=== PATIENT | male | born 1965 | race Caucasian/White ===

== ENCOUNTER 2016-07-04 19:21 | Emergency (ER) | payer BC, MEDICAID ==
--- NOTE | 2016-07-04 19:29 | ED Physician Chart ---
Chief Complaint/HPI - Patient Information Date Seen:: 07/04/16 Time Seen:: 19:29 Chief Complaint:: medication refill History of Present Illness:: 51-year-old male, insulin-dependent diabetic, complains of acute, moderate, need for insulin medication. Has associated frustrated feelings because he is unable to find somebody that will give him a free insulin. He is requesting dispensary of insulin. Has a prescription already but is unable to fill it because says he does not want to spend $200 on the medication. Historian:: Patient Review:: Nurse's Note Reviewed Review of Systems - Review of Systems Other: Complete system review otherwise unremarkable except as noted in HPI. Past Medical History - Past Medical History Past Medical History: HTN, DM Family History: None Social History: Non Smoker, No Alcohol, No Drug Use, Single Surgical History: None Psychiatricy History: None Medication: Reviewed Physical Exam - Physical Examination Other:: INITIAL VITAL SIGNS: Reviewed by me GENERAL: Alert and interactive. No acute distress HEAD: Head is normocephalic and atraumatic EYES: EOMI. . No scleral icterus. No conjunctival injection ENT: Moist mucous membranes. NECK: Supple. No masses. Full range of motion RESPIRATORY: No tachypnea. Clear breath sounds bilaterally. No wheezing, rales, or rhonchi CV: Regular rate and rhythm. No murmurs, rubs, or gallops ABDOMEN: Soft, non-distended, non-tender. No guarding. No rebound. No masses. EXTREMITIES: No deformity. No cyanosis. No edema. SKIN: Warm and dry. No obvious rashes. NEUROLOGIC: Alert and oriented. Face is symmetric. Speech is normal. Moves all extremities equally. Motor and sensory distally intact. ED Septic Shock - . Is Septic Shock (SBP<90, OR Lactate>4 mmol\L) present?: No Reassessment (Disposition) - Reassessment Reassessment:: Patient is here and is requesting that we dispense insulin/Lantus to him. He does not want to pay for it before his Medi-[facility] prescription kicks in. He already has a prescription for but apparently does not have the insurance to cover the cost. Accu-Chek was done here indicating blood sugar approximately 300. Patient advised to continue his oral metformin and follow up with primary care. I advised him that we are unable to dispense medicine at this facility. - Diagnosis Diagnosis:: Diabetes mellitus type 2 Hypertension Hypercholesterolemia Medication refill - Aftercare/Follow up Instructions Aftercare/Follow-Up Instructions:: Counseled pt regarding lab results/diagnosis & need follow up, Refer to Discharge Instructions - Patient Disposition Discharge/Transfer:: Home Time:: 20:00 Condition at Disposition:: Improved ED Discharge Plan - Patient Disposition Admit/Discharge/Transfer: PT DISCHARGED HOME Condition at Disposition: Improved Instructions: Type 2 Diabetes Mellitus, Adult, Insulin Treatment in Diabetes
== END 2016-07-04 20:20 | disposition home or self-care (01) ==
LOC: ER 19:21
DX: E11.8 Type 2 diabetes mellitus with unspecified complications (principal); I10 Essential (primary) hypertension; E78.00 Pure hypercholesterolemia, unspecified; Z79.4 Long term (current) use of insulin

== ENCOUNTER 2018-09-03 21:46 | Emergency (ER) | payer SELFPAY ==
--- NOTE | 2018-09-03 22:09 | ED Physician Chart ---
ED Chief Complaint/HPI - Patient Information Date Seen:: 09/03/18 Time Seen:: 22:04 Chief Complaint:: right elbow pain History of Present Illness:: this is a 53 yo diabetic,hypertensive, elevated lipids male with a history of gout with right elbow pain for a month. he is now concerned with increase pain or the last few days. Allergies:: Allergies Allergy/AdvReac Type Severity Reaction Status Date / Time No Known Allergies Allergy Verified 07/04/16 20:04 Vitals:: Vital Signs - 8 hr 09/03/18 21:50 Temp 98.2 F HR 82 RR 18 BP 147/90 O2 Sat % 96 Historian:: Patient Review:: Nurse's Note Reviewed, Old Chart Reviewed ED Review of Systems - Review of Systems General/Constitutional: No fever, No chills, No weight loss, No weakness, No diaphoresis, No edema, No loss of appetite Skin: No skin lesions, No rash, No bruising Head: No headache, No light-headedness Eyes: No loss of vision, No pain, No diplopia ENT: No earache, No nasal drainage, No sore throat, No tinnitus Neck: No neck pain, No swelling, No thyromegaly, No stiffness, No mass noted Cardio Vascular: No chest pain, No palpitations, No PND, No orthopnea, No edema Pulmonary: No SOB, No cough, No sputum, No wheezing GI: No nausea, No vomiting, No diarrhea, No pain, No melena, No hematochezia, No constipation, No hematemesis G/U: No dysuria, No frequency, No hematuria Musculoskeletal: Bone or joint pain (right elbow pain), No back pain, No muscle pain Endocrine: No polyuria, No polydipsia Psychiatric: No prior psych history, No depression, No anxiety, No suicidal ideation Hematopoietic: No bruising, No lymphadenopathy Allergic/Immuno: No urticaria, No angioedema Neurological: No syncope, No focal symptoms, No weakness, No paresthesia, No headache, No seizure, No dizziness, No confusion, No vertigo ED Past Medical History - Past Medical History Obtainable: Yes Past Medical History: HTN, DM, Dyslipidemia, Other (gout) Family History: None Social History: Non Smoker, No Alcohol, Illicit Drug Use, Single Surgical History: None Psychiatricy History: None Family Medical History - Family Member Mother History Unknown: Yes Brother Hx Family Diabetes: Yes ED Physical Exam - Physical Examination General/Constitutional: Awake, Well-developed, well-nourished, Alert, No distress, GCS 15, Non-toxic appearing, Ambulatory Head: Atraumatic Eyes: Lids, conjuctiva normal, PERRL, EOMI Skin: Nl inspection, No rash, No skin lesions, No ecchymosis, Well hydrated, No lymphadenopathy ENMT: External ears, nose nl, Nasal exam nl, Lips, teeth, gums nl Neck: Nontender, Full ROM w/o pain, No JVD, No nuchal rigidity, No bruit, No mass, No stridor Respiratory: Nl effort/Exclusion, Clear to Auscultation, No Wheeze/Rhonchi/Rales Cardio Vascular: RRR, No murmur, gallop, rubs, NL S1 S2 GI: No tenderness/rebounding/guarding, No organomegaly, No hernia, Normal BS's, Nondistended, No mass/bruits, No McBurney tenderness : No CVA tenderness Extremities: No tenderness or effusion (the right elbow is red, warm, tender and swollen with painful rom.), Full ROM, normal strength in all extremities, No edema, Normal digits & nails Neuro/Psych: Alert/oriented, DTR's symmetric, Normal sensory exam, Normal motor strength, Judgement/insight normal, Mood normal, Normal gait, No focal deficits Misc: Normal back, No paraspinal tenderness ED Labs/Radiology/EKG Results - Lab Results Results: Laboratory Results - last 24 hr 09/03/18 09/03/18 09/03/18 22:10 22:10 22:10 WBC 10.2 RBC 5.78 H Hgb 16.4 Hct 49.3 MCV 85.3 MCH 28.3 MCHC Differential 33.2 RDW 12.8 Plt Count 173 MPV 8.3 Neutrophils % 70.3 Lymphocytes % 18.6 L Monocytes % 8.6 Eosinophils % 2.3 Basophils % 0.2 Sodium 132 L Potassium 4.3 Chloride 100 Carbon Dioxide 22.9 Anion Gap 13.4 BUN 22 Creatinine 1.0 Est GFR ( Amer) > 60.0 Est GFR (Non-Af Amer) > 60.0 BUN/Creatinine Ratio 22.0 Glucose 386 H Uric Acid 5.1 Calcium 8.9 Total Bilirubin 0.5 AST 9 L ALT 10 Alkaline Phosphatase 64 Total Protein 6.8 Albumin 3.7 L Globulin 3.1 Albumin/Globulin Ratio 1.2 ED Assessment - Assessment General Assessment: arthritis of the right elbow ED Septic Shock - . Is Septic Shock (SBP<90, OR Lactate>4 mmol\L) present?: No - <6hrs of presentation: Vital Signs: Vital Signs - 8 hr 09/03/18 21:50 Temp 98.2 F HR 82 RR 18 BP 147/90 O2 Sat % 96 ED Reassessment (Disposition) - Reassessment Reassessment Condition:: Improved - Diagnosis Diagnosis:: right elbow arthritis diabetes mellitus uncontrolled - Aftercare/Follow up Instructions Aftercare/Follow-Up Instructions:: Counseled pt regarding lab results/diagnosis & need follow up, Refer to Discharge Instructions, Counseled pt & family regarding lab results/diagnosis & need follow up Notes:: he was told to follow up with his doctor for a consult for the arthritis - Patient Disposition Discharge/Transfer:: Home Condition at Disposition:: Improved
[2018-09-03 22:24] LABS: % BASOPHILS 0.2 % (0.0-2.0); % EOSINOPHILS 2.3 % (0.0-5.0); % LYMPHOCYTES 18.6 % (20.0-50.0); % MONOCYTES 8.6 % (2.0-10.0); % NEUTROPHILS 70.3 % (40.0-80.0); EOSINOPHILE ABSOLUTE 0.2 Th/cmm (0.1-0.4); HEMATOCRIT 49.3 % (41.0-60); HEMOGLOBIN 16.4 gm/dL (12-16); LYMPHOCYTE ABSOLUTE 1.9 Th/cmm (1.5-3.0); MEAN CELL VOLUME 85.3 fl (80-99); MEAN CORPUSCULAR HEMOGLOBIN 28.3 pg (26.0-30.0); MEAN CORPUSCULAR HGB CONC 33.2 pg (28.0-36.0); MEAN PLATELET VOLUME 8.3 fl; MONOCYTE ABSOLUTE 0.9 Th/cmm (0.3-1.0); NEUTROPHILE ABSOLUTE 7.2 Th/cmm (1.8-8.0); PLATELET COUNT 173 Th/cmm (150-400); RED BLOOD COUNT 5.78 Mil/cmm (4.30-5.70); RED CELL DISTRIBUTION WIDTH 12.8 % (11.5-20.0); WHITE BLOOD COUNT 10.2 Th/cmm (4.8-10.8)
[2018-09-03 22:48] LABS: ALB/GLOB RATIO 1.2 (1.0-1.8); ALBUMIN 3.7 gm/dL (4.2-5.5); ALKALINE PHOSPHATASE 64 U/L (34-104); ANION GAP 13.4 (7.0-16.0); BILIRUBIN,TOTAL 0.5 mg/dL (0.3-1.0); BUN - UREA NITROGEN 22 mg/dL (7-25); CALCIUM SERUM 8.9 mg/dL (8.6-10.3); CARBON DIOXIDE 22.9 mEq/L (21.0-31.0); CHLORIDE 100 mEq/L (98-107); GFR AFRICAN-AMERICAN > 60.0 ml/min (>90); GFR NON AFRICAN-AMERICAN > 60.0 ml/min; GLUCOSE 386 mg/dL (70-105); POTASSIUM SERUM 4.3 mEq/L (3.5-5.1); SGOT 9 U/L (13-39); SGPT/ALT 10 U/L (7-52); SODIUM SERUM 132 mEq/L (136-145); TOTAL PROTEIN,SERUM 6.8 gm/dL (6.0-8.3)
[2018-09-03] MEDS ORDERED: INSULIN HUMAN REGULAR 100 UNITS/ML UNIT ONE (23:07)
[2018-09-03] MEDS: INSULIN HUMAN REGULAR 100 UNITS/ML UNIT SUBQ ONE (23:09)
== END 2018-09-03 23:13 | disposition home or self-care (01) ==
LOC: ER 21:46
DX: M13.821 Other specified arthritis, right elbow (principal); E11.9 Type 2 diabetes mellitus without complications; I10 Essential (primary) hypertension; E78.5 Hyperlipidemia, unspecified
CPT/HCPCS: 99283; 96372 ×3; 36415; 85025; 83036; 80053; 84550; 87040 ×2; J1885; J0696; J1815; Z7502